=== PATIENT | female | born 1965 | race Caucasian/White ===

== ENCOUNTER 2017-06-09 14:41 | Emergency (ER) | payer OTHER ==
[2017-06-09 15:03] VITALS: BP 128/71
--- NOTE | 2017-06-09 15:22 | EDM.PDOC ---
ED HPI GENERAL MEDICAL PROBLEM - General Chief Complaint: Abdominal Pain Stated Complaint: STOMACH PAIN Time Seen by Provider: 06/09/17 15:15 Source of Information: Reports: Patient, Provider History Limitations: Reports: No Limitations - History of Present Illness INITIAL COMMENTS - FREE TEXT/NARRATIVE: 52-year-old female last evening around 10 PM developed an epigastric pain which is fairly sudden onset. It occurred while she was watching TV. It does not radiate, she feels nauseous but no vomiting. She tried to drink some chocolate milk today but it did not have an effect either way. She went into the clinic to be evaluated, they felt she was too "agitated" to be worked up in the clinic so sent her to the emergency room. She has no fevers or chills, she has no history of abdominal surgeries. The pain is persistent and is subxiphoid, epigastric, and hurts to push. There is also small amount of discomfort with a deep breath. Onset: Sudden (18 hours ago, last evening) Location: Reports: Abdomen Quality: Reports: Ache, Pressure Severity: Moderate Improves with: Reports: None Worsens with: Reports: Breathing Associated Symptoms: Reports: No Other Symptoms Upper Abdominal Pain Score (Numeric/FACES): 5 - Related Data Allergies Allergy/AdvReac Type Severity Reaction Status Date / Time No Known Allergies Allergy Verified 06/09/13 19:16 Home Meds: Home Meds LORazepam [Ativan] 0.5 mg PO ASDIRECTED PRN 06/09/13 [History] Past Medical History Gastrointestinal History: Reports: [employer] History: Reports: Psychiatric History: Reports: Anxiety - Past Surgical History Female Surgical History: Reports: Tubal Ligation Social & Family History - Tobacco Use Smoking Status *Q: Heavy Tobacco Smoker Years of Tobacco use: 1 Packs/Tins Daily: 6 - Caffeine Use Caffeine Use: Reports: Coffee, Soda - Alcohol Use Days Per Week of Alcohol Use: 0 - Recreational Drug Use Recreational Drug Use: No ED ROS GENERAL - Review of Systems Review Of Systems: See Below Constitutional: Reports: Malaise. Denies: Fever, Chills HEENT: Reports: No Symptoms Respiratory: Denies: Shortness of Breath Cardiovascular: Denies: Chest Pain, Palpitations GI/Abdominal: Reports: Abdominal Pain, Decreased Appetite, Nausea. Denies: Constipation, Diarrhea, Vomiting : Reports: No Symptoms Musculoskeletal: Reports: No Symptoms Skin: Reports: No Symptoms Neurological: Reports: No Symptoms ED EXAM, GI/ABD - Physical Exam Exam: See Below Exam Limited By: No Limitations General Appearance: Alert, Mild Distress (She looks uncomfortable but not agitated or significantly distressed) Eyes: Bilateral: Normal Appearance (No jaundice) Head: Atraumatic Respiratory/Chest: No Respiratory Distress, Lungs Clear Cardiovascular: Regular Rate, Rhythm GI/Abdominal Exam: Normal Bowel Sounds, Soft, Tender (Patient is tender to palpation in the epigastric area, no guarding) Extremities: Normal Inspection. No: Pedal Edema Neurological: Alert, Oriented Psychiatric: Normal Affect, Normal Mood Skin Exam: Warm, Dry EKG INTERPRETATION Rhythm: NSR Course - Vital Signs Last Recorded V/S: Last Vital Signs Temp 96.7 F 06/09/17 15:03 Pulse 80 06/09/17 15:03 Resp 18 06/09/17 15:03 BP 128/71 06/09/17 15:03 Pulse Ox 98 06/09/17 15:03 - Orders/Labs/Meds Orders: Active Orders 24 hr Category Date Time Status EKG Documentation Completion [RC] ASDIRECTED Care 06/09/17 15:22 Active EKG 12 Lead [EK] Routine Ther 06/09/17 15:21 Ordered Labs: Laboratory Tests 06/09/17 06/09/17 Range/Units 15:33 15:33 WBC 9.5 (4.5-11.0) K/uL RBC 4.44 (3.30-5.50) M/uL Hgb 14.9 (12.0-15.0) g/dL Hct 44.4 (36.0-48.0) % MCV 100 H (80-98) fL MCH 34 H (27-31) pg MCHC 34 (32-36) % Plt Count 244 (150-400) K/uL Neut % (Auto) 59 (36-66) % Lymph % (Auto) 27 (24-44) % Atkinson % (Auto) 12 H (2-6) % Eos % (Auto) 2 (2-4) % Baso % (Auto) 1 (0-1) % Sodium 141 (140-148) mmol/L Potassium 4.6 (3.6-5.2) mmol/L Chloride 104 (100-108) mmol/L Carbon Dioxide 30 (21-32) mmol/L Anion Gap 7.0 (5.0-14.0) mmol/L BUN 13 (7-18) mg/dL Creatinine 0.9 (0.6-1.0) mg/dL Est Cr Clr Drug Dosing 57.07 mL/min Estimated GFR (MDRD) > 60 (>60) Glucose 86 (74-106) mg/dL Calcium 9.4 (8.5-10.1) mg/dL Total Bilirubin 0.6 (0.2-1.0) mg/dL AST 22 (15-37) U/L ALT 22 (12-78) U/L Alkaline Phosphatase 65 (46-116) U/L Total Protein 6.4 (6.4-8.2) g/dL Albumin 3.6 (3.4-5.0) g/dL Globulin 2.8 (2.3-3.5) g/dL Albumin/Globulin Ratio 1.3 (1.2-2.2) Amylase 47 (25-115) U/L Lipase 98 (73-393) U/L Meds: Medications Discontinued Medications Generic Name Dose Route Start Last Admin Trade Name Freq PRN Reason Stop Dose Admin Al Hydroxide/Mg Hydroxide 15 0 ml 06/09/17 15:28 06/09/17 15:31 ml/ Lidocaine HCl 15 ml PO 06/09/17 15:29 15 ml ONETIME ONE Administration - Re-Assessments/Exams Free Text/Narrative Re-Assessment/Exam: 06/09/17 15:31 Patient was given a GI cocktail, CBC, CMP, amylase, lipase and troponin were obtained as well as an EKG. EKG was normal. 06/09/17 16:24 GI cocktail provided some relief but not complete relief. All labs were normal other than a borderline elevated MCV. We discussed further workup including EGD or CAT scan, but we elected to take 40 mg a omeprazole daily for at least a week and recheck in 3-4 days if not improving Departure - Departure Time of Disposition: 16:43 Disposition: Home, Self-Care 01 Condition: Good Clinical Impression: Abdominal pain Qualifiers: Abdominal location: epigastric Qualified Code(s): R10.13 - Epigastric pain - Discharge Information Instructions: Abdominal Pain, Adult, [id number] Referrals: PCP,None [Primary Care Provider] - Forms: ED Department Discharge Care Plan Goals: Take 40 mg of omeprazole daily for at least 7-10 days. If improved reduced to 20 mg daily for a total of 3 weeks. Recheck in 3-4 days if not improving, and return anytime sooner if worsening. Advance diet as tolerated. - My Orders Last 24 Hours: My Active Orders 06/09/17 15:21 EKG 12 Lead [EK] Routine 06/09/17 15:22 EKG Documentation Completion [RC] ASDIRECTED - Assessment/Plan Last 24 Hours: My Active Orders 06/09/17 15:21 EKG 12 Lead [EK] Routine 06/09/17 15:22 EKG Documentation Completion [RC] ASDIRECTED
[2017-06-09] MEDS ORDERED: Alum Hydrox/Mag Hydrox/Simeth 15 ML, Lidocaine 2% 15 ML PO ONE ×2 (15:28)
== END 2017-06-09 16:43 | disposition home or self-care (01) ==
LOC: JP.ED 14:41
DX: R10.13 Epigastric pain (principal); F17.210 Nicotine dependence, cigarettes, uncomplicated
CPT/HCPCS: 36415; 80053; 82150; 83690; 85025; 93005; 99284; A9270